=== PATIENT | female | born 1995 | race Caucasian/White ===

== ENCOUNTER 2017-08-24 19:42 | Emergency (ER) | payer MEDICAID ==
[~2017-08-24] VITALS: Ht 152.4 cm; Wt 48.2 kg
[2017-08-24 21:13] LABS: BASOPHILS % (AUTO) 0.4 % (0.0-2.0); EOSINOPHILS % (AUTO) 1.6 % (1.0-6.0); HEMATOCRIT 42.1 % (36-46); HEMOGLOBIN 14.4 g/dL (12.0-16.0); LYMPHOCYTES # (AUTO) 2.8 K/uL (1.0-4.8); LYMPHOCYTES % (AUTO) 31.2 % (22.0-44.0); MEAN CORPUSCULAR HEMOGLOBIN 30.1 pg (26.0-34.0); MEAN CORPUSCULAR HGB CONC 34.3 G/dL (31.0-37.0); MEAN CORPUSCULAR VOLUME 88 fL (80-100); MONOCYTES # (AUTO) 0.7 K/uL (0.1-1.0); MONOCYTES % (AUTO) 8.4 % (2.0-9.0); NEUTROPHILS # (AUTO) 5.2 K/uL (1.8-7.7); NEUTROPHILS % (AUTO) 58.4 % (40.0-70.0); PLATELET COUNT (AUTO) 295 K/uL (150-450); RED BLOOD CELL COUNT(AUTO) 4.79 MIL/uL (4.00-5.20); RED CELL DISTRIBUTION WIDTH 13.6 % (11.5-14.5)
[2017-08-24 22:58] VITALS: BP 121/66
== END 2017-08-25 00:30 | disposition home or self-care (01) ==
LOC: EMS 19:44
DX: O03.9 Complete or unspecified spontaneous abortion without complication (principal); Z88.0 Allergy status to penicillin; Z3A.00 Weeks of gestation of pregnancy not specified
CPT/HCPCS: 86901; 99284